=== PATIENT | male | born 1985 | race African-American/Black ===

== ENCOUNTER 2019-03-24 19:04 | Emergency (ER) | payer SELFPAY ==
[~2019-03-24] VITALS: Ht 172.7 cm; Wt 75.0 kg
[2019-03-24] MEDS ORDERED: BACITRACIN ZINC OINT UDPKT TOP ONE (20:45)
[2019-03-24] MEDS ORDERED: ACETAMINOPHEN 325MG TABLET PO ONE (20:45)
[2019-03-24] MEDS ORDERED: LIDOCAINE HCL/PF 1% 10 MG/ML 5ML VIAL IJ ONE (20:45)
[2019-03-24] MEDS ORDERED: BACITRACIN 15GM TUBE TOP NR (21:00)
[2019-03-24 23:04] VITALS: BP 145/102
== END 2019-03-24 23:21 | disposition home or self-care (01) ==
LOC: ER 19:04
DX: S01.81XA Laceration without foreign body of other part of head, initial encounter (principal); F17.200 Nicotine dependence, unspecified, uncomplicated; X58.XXXA Exposure to other specified factors, initial encounter; Y93.89 Activity, other specified; Y92.89 Other specified places as the place of occurrence of the external cause; Y99.8 Other external cause status
CPT/HCPCS: 12013; 99283; J3490; 12001